=== PATIENT | female | born 1970 | race Caucasian/White ===

== ENCOUNTER 2016-11-22 01:12 | Emergency (ER) | payer OTHER ==
[~2016-11-22] VITALS: Ht 172.7 cm; Wt 86.4 kg
[~2016-11-22 01:12] MED LIST: ALBU18HF INH; FLUT1DIS5 IH; OXYC1TAB24 PO
[2016-11-22 01:18] VITALS: BP 153/95; PULSE 122; RESP 30; O2SAT 95
[2016-11-22] MEDS ORDERED: 0.9% Sodium Chloride 1,000 ML IV ONE (01:27)
[2016-11-22] MEDS ORDERED: Albuterol 2.5 mg/3 mL Inhalation Solution NEB ONE (01:30)
[2016-11-22] MEDS ORDERED: Albuterol-Ipratropium 3 mL Inhalation Solution NEB ONE (01:30)
[2016-11-22] MEDS ORDERED: MethylprednisoLONE Sodium Succinate 62.5 mg/mL 2 mL Inj IVPUSH ONE (01:35)
[2016-11-22 01:40] VITALS: PULSE 114; RESP 20; O2SAT 94
[2016-11-22 01:53] LABS: BASOPHILS % (AUTO) 0.5 % (0-3); EOSINOPHILS % (AUTO) 8.1 % (0-5); MONOCYTES % (AUTO) 9.8 % (4-12); Mean Corpuscular Hemoglobin 31.8 pg (27.0-35.0); Mean Corpuscular Volume 93.7 fL (81-100); NEUTROPHILS % (AUTO) 56.1 % (40-74); Platelet Count 250 bil/L (150-400)
[2016-11-22 02:12] LABS: INR 0.95 ratio
[2016-11-22 02:33] LABS: TROPONIN T 0.01 ug/L (0.0-0.011)
--- NOTE | 2016-11-22 02:34 | ED.REPORT ---
HPI-General Illness Date of Service Nov 22, 2016 ED Provider: Arjun Jeffries MD A female with a history of COPD, asthma, and depression presents to the ED with shortness of breath onset two days ago. Associated symptoms include cough, rhinorrhea, and nasal congestion. The patient has ill contacts at home. She denies other symptoms. The patient has had similar symptoms in the past, successfully treated with prednisone. Nursing Notes Stated Complaint: COPD ATTACK Chief Complaint: Respiratory Complaints Nursing Notes Reviewed: Yes Allergies: Coded Allergies: azatadine (Verified Allergy, Severe, 11/22/16) diazepam (Verified Allergy, Severe, RASH, 11/22/16) Scheduled Doxycycline Monohyd (Doxycycline Monohyd) 100 Mg Tablet 100 MG PO BID Fluticasone/Salmeterol (Advair 500-50 Diskus) 1 Each Disk.w.dev 1 PUFF IH BID Nicotine 14 mg/24 hr Patch (Nicotine 14 mg/24 hr Patch) 1 Each Patch.td24 1 PATCH TRANSDERM DAILY Nicotine 21 mg/24 hr Patch (Nicotine 21 mg/24 hr Patch) 1 Each Patch.dysq 1 PATCH TRANSDERM DAILY Nicotine 7 mg/24 hr Patch (Nicotine 7 mg/24 hr Patch) 1 Each Patch.td24 1 PATCH TRANSDERM DAILY Prednisone (PredniSONE) 20 Mg Tablet 60 MG PO DAILY Scheduled PRN Albuterol Neb Soln (Albuterol Neb Soln) 2.5 Mg/3 Ml Vial.neb 2.5 MG INHALATION Q4H PRN PRN For Wheezing Albuterol Sulfate (Ventolin HFA Inhaler) 200 Puff/18 Gm Inhaler 2 PUFFS INH Q4- 6H PRN PRN For Shortness of Breath oxyCODONE-Acetaminophen 5-325 mg (oxyCODONE-Acetaminophen 5-325 mg) 1 Each Tablet 1-2 TAB PO Q6H PRN PRN For Pain General Time Seen by MD: 01:26 Chief Complaint Breathing problem Hx Obtained From: Patient Arrived By: Walk-in Sudden in Onset?: No Onset Occurred: 2 days ago Symptom Duration: Since onset Severity: Current: No pain currently Severity: Maximum: No pain Associated with: Reports: Congestion, Denies: Fever Pertinent Negative: Relieved by nothing Context Related History: Reports Asthma, Reports COPD Recent Healthcare: No recent doctor visit Similar Sx Previous: Yes Past Medical History Past Medical History Reports: Asthma, COPD Reports: Depression Past Surgical History Reports: Tonsillectomy Smoking History Current Every Day Smoker Social History Alcohol Use: >5 per day Drug Use: IV drugs, Meth, THC Other Social History: Lives with children, Local resident Occupation lives with partner, no work or school Ambulatory Status Independent Review of Systems Full Review of Systems Constitutional: Denies: Fever Ears / Nose / Throat: Reports: Nasal congestion Respiratory: Reports: Non-productive cough, Shortness of breath GI: Denies: Diarrhea, Nausea, Vomiting Allergy / Immune: Reports: Rhinorrhea Complete sys rev & neg: except as marked. Physical Exam Vital Signs Vital Signs Date Time Temp Pulse Resp B/P Pulse Ox O2 Delivery O2 Flow Rate FiO2 11/22/16 03:32 36.3 112 18 148/82 96 Room Air 11/22/16 01:40 114 20 94 Room Air 11/22/16 01:18 36.6 122 30 153/95 95 Room Air Initial VS: Reviewed Head / Eyes: Atraumatic, Normocephalic Neck: Supple, Full range of motion Cardiovascular: Regular rate & rhythm, Heart sounds normal Extremities: Vascular intact, Neuro intact, No swelling Skin: Warm, Dry, No cyanosis Neurologic: Alert, Oriented, Nonfocal Psychiatric: Mood/affect normal, Behavior normal, Normal thought content General/Constitutional: Awake, Alert, Well hydrated ENT: Airway patent, Mucous membranes moist Dental / Gums: Positive: Dentition poor Respiratory / Chest: Breath sounds = bilat Wheezing / Retractions: Positive: Wheezing moderate (Bilaterally) Patient initially tripoding Abdomen: Soft, Non-tender Obese Interpretation & Diagnostics Lab Results Interpretation Result Diagram: 11/22/16 0144 11/22/16 0144 Test 11/22/16 01:44 White Blood Count 11.7th/mm3 (3.8-10.1) Red Blood Count 4.44mil/mm3 (3.90-5.20) Hemoglobin 14.1g/dL (12.0-15.6) Hematocrit 41.6% (35.0-46.0) Mean Corpuscular Volume 93.7fL (81-100) Mean Corpuscular Hemoglobin 31.8pg (27.0-35.0) Mean Corpuscular Hemoglobin Concent 33.9% (32.0-37.0) Red Cell Distribution Width 12.6% (12.3-15.4) Platelet Count 250bil/L (150-400) Neutrophils (%) (Auto) 56.1% (40-74) Lymphocytes (%) (Auto) 25.3% (14-46) Monocytes (%) (Auto) 9.8% (4-12) Eosinophils (%) (Auto) 8.1% (0-5) Basophils (%) (Auto) 0.5% (0-3) Prothrombin Time 10.2sec (8.1-12.5) Prothromb Time International Ratio 0.95ratio Activated Partial Thromboplast Time 28.2sec (22.8-33.0) Sodium Level 140mEq/L (134-144) Potassium Level 3.9mEq/L (3.5-5.2) Chloride Level 104mEq/L (97-108) Carbon Dioxide Level 21mmol/L (18-29) Blood Urea Nitrogen 9mg/dL (6-24) Creatinine 0.85mg/dL (0.57-1.00) Estimat Glomerular Filtration Rate 104mL/min (>59) Glucose Level 123mg/dL (60-99) Lactic Acid Level 1.9mmol/L (0.4-2.0) Calcium Level 8.7mg/dL (8.5-10.1) Magnesium Level 2.0mg/dL (1.6-2.6) Total Bilirubin 0.2mg/dL (0.0-1.2) Aspartate Amino Transf (AST/SGOT) 16U/L (0-50) Alanine Aminotransferase (ALT/SGPT) 12U/L (0-32) Alkaline Phosphatase 83U/L (25-150) Troponin T 0.010ug/L (0.0-0.011) Pro-B-Type Natriuretic Peptide 81pg/mL (0-130) Total Protein 6.1g/dL (6.4-8.4) Albumin 3.9g/dL (3.4-5.0) Procalcitonin 0.02ng/mL (0.00-0.08) ECG Interpretation ECG Interpretation: Sinus rhythm rate 99 Time: 02:48 Interpreted by: ED physician X-Ray Chest Interpretation Chest Xray Interpretation: COPD appearance No acute infiltrate Displaced, 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 She is continues smoke up until two days ago, when her current symptoms became too severe to allow her to smoke. She was counseled strongly that she needs to quit ANTONIO or bear heavy consequences. She is improved enough here after a series of that she prefers to go home. Given IV Solu-Medrol and a prescription of prednisone to follow. Empiric antibiotics, given her smoking status and rhonchorous cough. Doxycycline twice a day for ten days. Discharged in stable and improved condition Time of Eval: 02:33 Patient Status: Condition improved Re-Evaluation/Progress Note: Patient feels much better. Discussed with patient x-ray and lab results, diagnosis, and plan for discharge. Follow-up and return to the ER instructions given. Patient agrees with plan for care and all questions were addressed. Counseled Regarding: Diagnosis, Lab results, Need for follow-up, When/why to return to ED Discharge & Departure Shift Change Sign-Out Response to Therapy: Improved Primary Impression: Asthma Asthma severity: unspecified severity Asthma complication type: uncomplicated Qualified Code: J45.909 - Unspecified asthma, uncomplicated Additional Impressions: COPD (chronic obstructive pulmonary disease) COPD type: unspecified COPD Qualified Code: J44.9 - Chronic obstructive pulmonary disease, unspecified Bronchitis Disposition: Home Discharge Condition All VS Reviewed: Yes Condition: Improved Patient Instructions: Acute Bronchitis (ED), Asthma (ED), Chronic Obstructive Pulmonary Disease (ED) Additional Instructions: Is critical that you stop smoking immediately. Use nicotine patches if needed to quit. Doxycycline twice daily for seven days. Prednisone three tabs daily for seven days. Albuterol puffer with spacer two puffs every 3-4 hours as needed. Alternatively, you may use a nebulizer every four hours. Follow-up with your doctor in the office. Return for any immediate issues with worsening symptoms or other new symptoms of concern. Referrals: Easton Enciso MD (PCP) Radhaibe Attestation Portions of this note were transcribed by Ginger Ryan. I, Dr. Jeffries, personally performed the history, physical exam, and medical decision-making; I reviewed and confirmed the accuracy of the information in the transcribed note. Signed by: Pilar Sears, 11/22/2016, 03:50 copies to: Easton Enciso MD, Christopher W MD Nov 22, 2016 02:33 GINGER RYAN Nov 22, 2016 03:45
[2016-11-22] MEDS ORDERED: ALBU2.5V4 INHALATION (02:43)
[2016-11-22] MEDS ORDERED: NIC7 TRANSDERM (02:43)
[2016-11-22] MEDS ORDERED: NICO1PAT16 TRANSDERM (02:43)
[2016-11-22] MEDS ORDERED: DOXY-232 PO (02:43)
[2016-11-22] MEDS ORDERED: PRE20 PO (02:43)
[2016-11-22] MEDS ORDERED: NICO1PAT5 TRANSDERM (02:43)
[2016-11-22 03:32] VITALS: BP 148/82; PULSE 112; RESP 18; O2SAT 96
--- NOTE | 2016-11-22 09:43 | DRSVH ---
PROCEDURE: X-RAY CHEST ONE VIEW, PORTABLE ([id number]) INDICATIONS: SHORT OF BREATH, copd TECHNIQUE: One view of the chest was acquired. COMPARISON: [facility], CR, XR CHEST 2VW, 07/24/2016, 20:15. FINDINGS: Surgical changes and devices: None. Lungs and pleura: No pleural effusions or pneumothorax. Lungs are clear. Mediastinum: Mediastinal contours appear normal. Heart size is normal. Bones and chest wall: No suspicious bony lesions. Overlying soft tissues appear unremarkable. Mild expansile appearance of the right posterior sixth rib unchanged over time likely related to old trau ma. IMPRESSION: No acute cardiopulmonary disease. Dictated by: Mauricio KEITA Interpreted: Asha Batista MD on 11/22/2016 at 9:38 Transcribed by: ELIZABETH on 11/22/2016 at 9:43 Approved by: Asha Batista M.D. on 11/22/2016 at 17:22
== END 2016-11-22 03:33 | disposition home or self-care (01) ==
LOC: SED 01:12
DX: J44.9 Chronic obstructive pulmonary disease, unspecified (principal); F17.200 Nicotine dependence, unspecified, uncomplicated; Z88.8 Allergy status to other drugs, medicaments and biological substances
CPT/HCPCS: 36415; 71010; 80053; 82308; 83605; 83735; 83880; 84484; 85025; 85610; 85730; 87040; 93005; 94644; 96374; 99285; J2930; J7030; J7613; J7620